=== PATIENT | female | born 1945 | race Caucasian/White ===

== ENCOUNTER 2017-12-27 05:59 | Day surgery (SDC) | payer MEDICARE, MEDICAID ==
[~2017-12-27] VITALS: Ht 144.8 cm; Wt 63.5 kg
[2017-12-27] MEDS ORDERED: FLUO10CA21 PO (07:43)
[2017-12-27] MEDS ORDERED: AMLO-143 PO (07:43)
[2017-12-27] MEDS ORDERED: fentaNYL 0.05 MG/ML VIAL ONE (09:03)
[2017-12-27] MEDS ORDERED: LIDOCAINE 2% 100 MG/5 ML UJET TP ONE (09:03)
[2017-12-27] MEDS ORDERED: MIDAZOLAM 2 MG/2 ML VIAL ONE (09:03)
[2017-12-27] MEDS ORDERED: MIDAZOLAM 2 MG/2 ML VIAL IVP ONE (12:20)
[2017-12-27] MEDS ORDERED: fentaNYL 0.05 MG/ML VIAL IVP ONE (12:20)
== END 2017-12-27 12:18 | disposition home or self-care (01) ==
LOC: MDS 05:59 → MMU 06:00 → MDS 12:18
PROVIDERS: ATTEND Internal Medicine Gastroenterology
DX: Z12.11 Encounter for screening for malignant neoplasm of colon (principal); K29.70 Gastritis, unspecified, without bleeding; B96.81 Helicobacter pylori [H. pylori] as the cause of diseases classified elsewhere; Z98.51 Tubal ligation status
CPT/HCPCS: 36415; 43239; 45378; 86677; J2250; J3010